=== PATIENT | female | born 1955 | race Caucasian/White ===

== ENCOUNTER 2018-11-29 08:19 | Day surgery (SDC) | payer OTHER ==
[~2018-11-29] VITALS: Ht 160 cm; Wt 62.6 kg
[~2018-11-29 08:19] MED LIST: ALBU90OI61; Aspirin EC81 MG; Excedrin Extra1 EACH; Inderal 20 mg T20 MG
== END 2018-11-29 11:05 | disposition home or self-care (01) ==
LOC: ORSCSDS 08:19
PROVIDERS: Internal Medicine Gastroenterology
PROC: 0DBK8ZX Excision of Ascending Colon, Via Natural or Artificial Opening Endoscopic, Diagnostic (ICD-10-PCS; principal; 2018-11-29 10:00)
DX: Z12.11 Encounter for screening for malignant neoplasm of colon (principal); D12.2 Benign neoplasm of ascending colon; K64.8 Other hemorrhoids; K57.30 Diverticulosis of large intestine without perforation or abscess without bleeding; J45.909 Unspecified asthma, uncomplicated; Z79.82 Long term (current) use of aspirin; Z79.899 Other long term (current) drug therapy
CPT/HCPCS: J2704; J7120

== ENCOUNTER → 2019-08-12 | Outpatient (CLI) | payer OTHER ==
[2019-08-16 16:06] LABS: HPV 16 Negative (Negative); HPV 18 Negative (Negative); HPV OTHER HR TYPES Negative (Negative)
== END | disposition home or self-care (01) ==
LOC: LAB 19:21 → LAB SHORT 19:21
PROVIDERS: Physician Assistant
DX: Z12.4 Encounter for screening for malignant neoplasm of cervix (principal)
CPT/HCPCS: 87624; G0145

== ENCOUNTER → 2023-03-31 | Outpatient (CLI) | payer OTHER | LOC: PLD 15:42 → LAB SHORT 15:42 | DX: D04.72 Carcinoma in situ of skin of left lower limb, including hip (principal) | CPT/HCPCS: 88305 ==

== ENCOUNTER → 2023-12-01 | Outpatient (CLI) | payer OTHER | LOC: LAB 11:39 → LAB SHORT 11:39 | DX: L57.0 Actinic keratosis (principal); L11.9 Acantholytic disorder, unspecified; L81.9 Disorder of pigmentation, unspecified; L81.4 Other melanin hyperpigmentation | CPT/HCPCS: 88305 ==